=== PATIENT | female | born 1995 | race Caucasian/White ===

== ENCOUNTER 2018-06-06 16:30 | Emergency (ER) | payer MEDICAID ==
[~2018-06-06] VITALS: Ht 172.7 cm; Wt 58.4 kg
[~2018-06-06 16:30] MED LIST: IBUP200T49 PO; OXYC-302 PO
[2018-06-06 16:45] VITALS: BP 131/75
== END 2018-06-06 17:17 | disposition home or self-care (01) ==
LOC: ED 17:11
DX: K08.89 Other specified disorders of teeth and supporting structures (principal)
CPT/HCPCS: 99283

== ENCOUNTER 2018-10-16 12:17 | Emergency (ER) | payer BC, MEDICAID ==
[~2018-10-16] VITALS: Ht 172.7 cm; Wt 56.7 kg
[2018-10-16 12:19] VITALS: BP 127/76
== END 2018-10-16 13:43 | disposition home or self-care (01) ==
LOC: ED 13:35
DX: S52.125A Nondisplaced fracture of head of left radius, initial encounter for closed fracture (principal); V00.128A Other non-in-line roller-skating accident, initial encounter; Y93.89 Activity, other specified; Y92.89 Other specified places as the place of occurrence of the external cause; Y99.8 Other external cause status
CPT/HCPCS: 29105; 99283

== ENCOUNTER 2020-09-23 20:42 | Inpatient (IN) | payer MEDICAID ==
[~2020-09-23] VITALS: Ht 172.7 cm; Wt 69.0 kg
[2020-09-23 21:00] VITALS: BP 121/73
[2020-09-23] MEDS ORDERED: NEWBORN KIT ONE (21:11)
[2020-09-23] MEDS ORDERED: MISOPROSTOL 200 MCG TABLET ONE (21:19)
[2020-09-23] MEDS ORDERED: LIDOCAINE 1%, 20ML ONE (21:19)
[2020-09-23] MEDS ORDERED: OXYTOCIN 30U/ 0.9% NaCL 500ML 500 ML ONE (21:19)
[2020-09-23] MEDS ORDERED: LACTATED RINGERS 1,000 ML IV SCH ×2 (21:30→23:00)
[2020-09-23] MEDS ORDERED: CALCIUM CARBONATE 500 MG TAB.CHEW PO PRN (21:30)
[2020-09-23] MEDS ORDERED: FENTANYL PF 100 MCG/2ML IVPush PRN (21:30)
[2020-09-23] MEDS: PLEASE ENTER HEIGHT AND WEIGHT MC SCH (21:30)
[2020-09-23] MEDS ORDERED: TERBUTALINE 1 MG/ML, 1ML SQ PRN (21:30)
[2020-09-23] MEDS ORDERED: D5%-LACTATED RINGERS 1,000 ML IV SCH (21:30)
[2020-09-23] MEDS ORDERED: ONDANSETRON 2MG/ML, 2ML IVPush PRN (21:30)
[2020-09-23] MEDS ORDERED: TERBUTALINE 1 MG/ML, 1ML IVPush PRN (21:30)
[2020-09-23 21:46] LABS: BASOPHILS % (AUTO) 0 % (0-1); EOSINOPHILS % (AUTO) 0 % (1-7); LYMPHOCYTES % (AUTO) 15 % (22-44); MEAN CORPUSCULAR HEMOGLOBIN 30.5 pg (27.0-34.8); MEAN CORPUSCULAR HGB CONC 34.2 g/dL (32.4-35.8); MEAN PLATELET VOLUME 8.3 fL (7.4-10.4); MONOCYTES % (AUTO) 5 % (2-9); NEUTROPHILS % (AUTO) 79 % (42-75); PLATELET COUNT 274 x10^3/uL (130-400); RED BLOOD COUNT 4.38 x10^6/uL (3.82-5.3); RED CELL DISTRIBUTION WIDTH 13.1 % (9.6-15.2)
[2020-09-23] MEDS ORDERED: FENTANYL/BUPIV./NS/PF 250 ML EPIDCONT ONE (21:47)
[2020-09-23 21:49] LABS: MD NO
[2020-09-23] MEDS ORDERED: LACTATED RINGERS 1,000 ML IVBOLUS PRN (23:00)
[2020-09-23] MEDS ORDERED: EPHEDRINE 50 MG/ML, 1ML IVPush PRN (23:00)
[2020-09-23] MEDS ORDERED: FENTANYL/BUPIV./NS/PF 250 ML EPIDCONT SCH (23:00)
[2020-09-23] MEDS ORDERED: NALOXONE 0.4 MG/ML, 1ML IVPush PRN (23:00)
[2020-09-24] MEDS: OXYTOCIN 30U/ 0.9% NaCL 500ML 500 ML IV SCH ×3 (00:35→21:00)
[2020-09-24] MEDS ORDERED: MISOPROSTOL 200 MCG TABLET PR PRN (01:00)
[2020-09-24] MEDS ORDERED: OXYcodone/APAP 5/325MG TABLET PO PRN (01:00)
[2020-09-24] MEDS ORDERED: METHYLERGONOVINE 0.2 MG/ML IM PRN (01:00)
[2020-09-24] MEDS ORDERED: OXYTOCIN 30U/ 0.9% NaCL 500ML 500 ML ONE (01:00)
[2020-09-24] MEDS ORDERED: SIMETHICONE 80 MG CHEW TAB PO PRN (01:00)
[2020-09-24] MEDS ORDERED: ONDANSETRON 2MG/ML, 2ML IV PRN (01:00)
[2020-09-24 03:00] VITALS: BP 114/73
[2020-09-24] MEDS: IBUPROFEN 600 MG TABLET PO PRN ×4 (04:00→23:52)
[2020-09-24] MEDS: PLEASE ENTER HEIGHT AND WEIGHT MC SCH ×2 (05:30→13:30)
[2020-09-24 07:00] VITALS: BP 119/74
[2020-09-24] MEDS: PRENATAL VIT/IRON/FA 1 EACH TABLET PO SCH (07:33)
[2020-09-24] MEDS: ACETAMINOPHEN 325 MG TABLET PO PRN ×2 (07:33→12:55)
[2020-09-24] MEDS: DOCUSATE 100 MG CAPSULE PO PRN ×2 (07:33→20:24)
[2020-09-24 10:50] LABS: BASOPHILS % (AUTO) 0 % (0-1); EOSINOPHILS % (AUTO) 0 % (1-7); LYMPHOCYTES % (AUTO) 10 % (22-44); MEAN CORPUSCULAR HEMOGLOBIN 31.2 pg (27.0-34.8); MEAN CORPUSCULAR HGB CONC 34.8 g/dL (32.4-35.8); MONOCYTES % (AUTO) 5 % (2-9); NEUTROPHILS % (AUTO) 85 % (42-75); PLATELET COUNT 238 x10^3/uL (130-400); RED BLOOD COUNT 4.11 x10^6/uL (3.82-5.3); RED CELL DISTRIBUTION WIDTH 12.9 % (9.6-15.2)
[2020-09-24 10:55] LABS: MD NO
[2020-09-24 12:20] VITALS: BP 105/68
[2020-09-24] MEDS: OXYcodone/APAP 5/325MG TABLET PO PRN ×2 (14:25→20:25)
[2020-09-24 15:59] VITALS: BP 122/78
[2020-09-24 20:30] VITALS: BP 111/74
[2020-09-24 23:57] VITALS: BP 111/69
[2020-09-25] MEDS: OXYcodone/APAP 5/325MG TABLET PO PRN ×3 (03:00→09:06)
[2020-09-25] MEDS: OXYTOCIN 30U/ 0.9% NaCL 500ML 500 ML IV SCH (07:00)
[2020-09-25 07:32] VITALS: BP 123/79
[2020-09-25] MEDS: DOCUSATE 100 MG CAPSULE PO PRN (07:35)
[2020-09-25] MEDS: IBUPROFEN 600 MG TABLET PO PRN (07:35)
[2020-09-25] MEDS: PRENATAL VIT/IRON/FA 1 EACH TABLET PO SCH (09:00)
[2020-09-25] MEDS ORDERED: IBUP-1222 PO (09:02)
== END 2020-09-25 10:30 | disposition home or self-care (01) | DRG 807 ==
LOC: LDOP 20:42 → LDIP 21:07 → 2NW 09-24 02:37
PROVIDERS: ADMIT Student in an Organized Health Care Education/Training Program; ATTEND Student in an Organized Health Care Education/Training Program
PROC: 10E0XZZ Delivery of Products of Conception, External Approach (ICD-10-PCS; principal; 2020-09-24)
PROC: 3E0R3BZ Introduction of Anesthetic Agent into Spinal Canal, Percutaneous Approach (ICD-10-PCS; 2020-09-24)
PROC: 00HU33Z Insertion of Infusion Device into Spinal Canal, Percutaneous Approach (ICD-10-PCS; 2020-09-24)
DX: O80 Encounter for full-term uncomplicated delivery (principal); Z37.0 Single live birth; Z3A.39 39 weeks gestation of pregnancy; Z20.828 Contact with and (suspected) exposure to other viral communicable diseases
CPT/HCPCS: 36415; 85025; 86592; 86850; 86900; 87635; G0378; J2590; J3010; J7120